=== PATIENT | female | born 1965 | race Caucasian/White ===

== ENCOUNTER 2023-04-23 18:23 | Emergency (ER) | payer BC ==
[~2023-04-23] VITALS: Ht 157.5 cm; Wt 39.5 kg
[2023-04-23 18:44] VITALS: BP_SYST 129
[2023-04-23 19:30] LABS: BASOPHILS % (AUTO) 0.6 % (0.0-2.0); EOSINOPHILS % (AUTO) 0.5 % (0.0-4.0); HEMATOCRIT 37.6 % (36-48); HEMOGLOBIN 12.5 g/dL (12.0-16.0); LYMPHOCYTES # (AUTO) 2.7 K/uL (1.0-5.5); LYMPHOCYTES % (AUTO) 43.4 % (20.5-51.5); MEAN CORPUSCULAR HEMOGLOBIN 32 pg (27-31); MEAN CORPUSCULAR HGB CONC 33 % (32-36); MEAN CORPUSCULAR VOLUME 95 fL (79.0-98.0); MONOCYTES # (AUTO) 0.3 K/uL (0.0-1.0); MONOCYTES % (AUTO) 5.4 % (1.7-9.3); NEUTROPHILS # (AUTO) 3.1 K/uL (1.8-7.7); NEUTROPHILS % (AUTO) 50.1 % (40.0-70.0); PLATELET COUNT (AUTO) 165 K/uL (130-430); RED BLOOD CELL COUNT(AUTO) 3.96 MIL/uL (4.2-6.2); RED CELL DISTRIBUTION WIDTH 13.7 % (9.0-15.0); WHITE BLOOD COUNT (AUTO) 6.1 K/uL (4.8-10.8)
[2023-04-23 19:49] LABS: ALBUMIN 3.8 g/dL (3.4-4.8); CALCIUM 8.8 mg/dL (8.4-11.0); CREATININE 0.72 mg/dL (0.55-1.30); TOTAL BILIRUBIN 0.5 mg/dL (0.0-1.0)
[2023-04-23] MEDS ORDERED: KETOROLAC TROMETHAMINE 30 MG VIAL IM ONE (21:00)
[2023-04-23 21:19] LABS: BILIRUBIN,URINE NEGATIVE (NEGATIVE); BLOOD, URINE 2+ (NEGATIVE); CLARITY/URINE CLEAR (CLEAR); COLOR,URINE YELLOW (YELLOW); GLUCOSE,URINE NEGATIVE (NEGATIVE); KETONES,URINE NEGATIVE (NEGATIVE); LEUKOCYTE ESTERASE ,URINE NEGATIVE (NEGATIVE); NITRITE, URINE NEGATIVE (NEGATIVE); PROTEIN URINE NEGATIVE (NEGATIVE); UROBILINOGEN,URINE 0.2 (0.2-1.0)
[2023-04-23] MEDS ORDERED: HYDROcodone/ACETAMIN 5-325 MG TAB (NORCO/ VICODIN) PO ONE (21:30)
[2023-04-23 21:36] LABS: BACTERIA,URINE FEW /HPF (None Seen); MUCUS,URINE None Seen /LPF (None Seen); WBC,URINE NONE SEEN /HPF (0-3)
[2023-04-23] MEDS ORDERED: HYDR-3927 PO (22:39)
[2023-04-23 23:03] VITALS: BP_SYST 129
== END 2023-04-23 23:03 | disposition home or self-care (01) ==
LOC: SED 18:23
DX: R10.9 Unspecified abdominal pain (principal); R11.0 Nausea; Z79.899 Other long term (current) drug therapy
CPT/HCPCS: 36415; 76376; 80053; 81000; 83690; 85025; 99284; J1885

== ENCOUNTER 2023-11-06 19:27 | Emergency (ER) | payer BC ==
[~2023-11-06] VITALS: Ht 157.5 cm; Wt 39.0 kg
[~2023-11-06 19:27] MED LIST: HYDR-3927 PO
[2023-11-06 19:51] VITALS: BP_SYST 152; PULSE 84; RESP 18; TEMP 98.2; O2SAT 99
[2023-11-06] MEDS ORDERED: KETOROLAC TROMETHAMINE 15 MG VIAL IM ONE (20:45)
[2023-11-06 21:08] LABS: BASOPHILS # (AUTO) 0.1 K/uL (0.0-0.2); BASOPHILS % (AUTO) 0.8 % (0.0-2.0); EOSINOPHILS % (AUTO) 0.5 % (0.0-4.0); HEMATOCRIT 37.2 % (36-48); HEMOGLOBIN 12.5 g/dL (12.0-16.0); LYMPHOCYTES # (AUTO) 2.7 K/uL (1.0-5.5); LYMPHOCYTES % (AUTO) 37.1 % (20.5-51.5); MEAN CORPUSCULAR HEMOGLOBIN 32 pg (27-31); MEAN CORPUSCULAR HGB CONC 34 % (32-36); MEAN CORPUSCULAR VOLUME 94 fL (79.0-98.0); MONOCYTES # (AUTO) 0.4 K/uL (0.0-1.0); MONOCYTES % (AUTO) 5.2 % (1.7-9.3); NEUTROPHILS # (AUTO) 4.1 K/uL (1.8-7.7); NEUTROPHILS % (AUTO) 56.4 % (40.0-70.0); PLATELET COUNT (AUTO) 189 K/uL (130-430); RED BLOOD CELL COUNT(AUTO) 3.95 MIL/uL (4.2-6.2); WHITE BLOOD COUNT (AUTO) 7.2 K/uL (4.8-10.8)
[2023-11-06 21:16] LABS: CALCIUM 8.8 mg/dL (8.4-11.0); CREATININE 0.62 mg/dL (0.55-1.30); POTASSIUM 3.4 mmol/L (3.5-5.1)
[2023-11-06 21:20] LABS: ALBUMIN 3.9 g/dL (3.4-4.8); BILIRUBIN,DIRECT 0.1 mg/dL (0.0-0.3); TOTAL BILIRUBIN 0.5 mg/dL (0.0-1.0)
[2023-11-06 21:35] LABS: BILIRUBIN,URINE NEGATIVE (NEGATIVE); CLARITY/URINE CLEAR (CLEAR); COLOR,URINE YELLOW (YELLOW); GLUCOSE,URINE NEGATIVE (NEGATIVE); KETONES,URINE NEGATIVE (NEGATIVE); LEUKOCYTE ESTERASE ,URINE NEGATIVE (NEGATIVE); NITRITE, URINE NEGATIVE (NEGATIVE); PH,URINE 6.5 (5.0-8.0); PROTEIN URINE NEGATIVE (NEGATIVE); UROBILINOGEN,URINE 0.2 (0.2-1.0)
[2023-11-06 21:43] LABS: BLOOD, URINE TRACE (NEGATIVE)
[2023-11-06 21:44] LABS: BACTERIA,URINE None Seen /HPF (None Seen); RBC,URINE 0-3 /HPF (0-3); WBC,URINE NONE SEEN /HPF (0-3)
[2023-11-06 21:45] LABS: MUCUS,URINE None Seen /LPF (None Seen)
[2023-11-06] MEDS ORDERED: POLY17PO4 PO (23:04)
[2023-11-06] MEDS ORDERED: DOCU-144 PO (23:04)
[2023-11-07] MEDS ORDERED: KETOROLAC TROMETHAMINE 30 MG VIAL ONE (00:49)
[2023-11-07] MEDS ORDERED: HYDROcodone/ACETAMIN 5-325 MG TAB (NORCO/ VICODIN) PO ONE (01:00)
[2023-11-07 01:20] VITALS: BP_SYST 140; PULSE 80; RESP 18; TEMP 98.3; O2SAT 96
== END 2023-11-07 01:20 | disposition home or self-care (01) ==
LOC: SED 19:27
DX: K59.00 Constipation, unspecified (principal); R10.84 Generalized abdominal pain; Z79.899 Other long term (current) drug therapy
CPT/HCPCS: 99284; 74176; 80076; 80048; 81001; 83690; 85025; 36415; 76376; 81000; 81015; J1885